=== PATIENT | female | born 1995 | race Caucasian/White ===

== ENCOUNTER 2021-12-14 14:11 | Emergency (ER) | payer BC ==
[~2021-12-14] VITALS: Ht 162.6 cm; Wt 59.1 kg
[2021-12-14 14:21] VITALS: BP 153/78
[2021-12-14] MEDS ORDERED: LORazepam 1 MG tablet PO ONE (16:55)
[2021-12-14] MEDS ORDERED: LORA-269 PO (18:04)
== END 2021-12-14 18:17 | disposition home or self-care (01) ==
LOC: ER 14:12
DX: F41.9 Anxiety disorder, unspecified (principal); F12.10 Cannabis abuse, uncomplicated
CPT/HCPCS: 99283